=== PATIENT | female | born 1975 | race Two or more races ===

== ENCOUNTER 2021-09-26 13:08 | Emergency (ER) | payer OTHER ==
[~2021-09-26] VITALS: Ht 167.6 cm; Wt 72.7 kg
[2021-09-26] MEDS ORDERED: ACETAMINOPHEN 500 MG TABLET PO ONE (14:30)
[2021-09-26] MEDS ORDERED: KETOROLAC TROMETHAMINE 30 MG/ML VIAL IM ONE (14:30)
[2021-09-26 16:19] VITALS: BP 145/85
== END 2021-09-26 16:51 | disposition home or self-care (01) ==
LOC: EMS 13:08
DX: M72.2 Plantar fascial fibromatosis (principal); M25.562 Pain in left knee; F17.210 Nicotine dependence, cigarettes, uncomplicated
CPT/HCPCS: 73562; 73610; 73630; 96372; 99284; J1885